=== PATIENT | female | born 1990 | race Caucasian/White ===

== ENCOUNTER 2017-12-14 17:07 | Emergency (ER) | payer OTHER ==
[2017-12-14] MEDS ORDERED: HYDROmorphone INJ* 1 MG/ML CARPUJECT SYRINGE IV ONE ×2 (17:50→19:01)
[2017-12-14] MEDS ORDERED: Ondansetron INJ* 2 MG/ML VIAL IV ONE (17:50)
[2017-12-14] MEDS ORDERED: NS 0.9% 1000 ML* 1,000 ML IV ONE (17:50)
[2017-12-14] MEDS ORDERED: HYDROmorphone INJ1* 1 MG/ML SYRINGE ONE (18:01)
[2017-12-14] MEDS: HYDROmorphone INJ1* 1 MG/ML SYRINGE IV ONE ×2 (18:04→19:07)
--- NOTE | 2017-12-14 20:24 | RAD ---
EXAM: CT Pelvis Without Intravenous Contrast, Skeletal EXAM DATE/TIME: 12/14/2017 7:18 PM CLINICAL HISTORY: 27 years old, female; Pain; Hip pain; Right hip; Prior surgery; Surgery date: 6+ months; Surgery type: Hip pinning after FX; Additional info: Fall, HX of right hip dislocation TECHNIQUE: Axial computed tomography images of the pelvis without intravenous contrast. Exam focused on the skeletal structures. All CT scans at this facility use at least one of these dose optimization techniques: automated exposure control; mA and/or kV adjustment per patient size (includes targeted exams where dose is matched to clinical indication); or iterative reconstruction. Coronal and sagittal reformatted images were created and reviewed. COMPARISON: No relevant prior studies available. FINDINGS: Stomach and bowel: No dilated bowel identified. Bones/joints: There is chronic deformity and postsurgical change in the proximal right femur with 2 surgical screws extending through the greater trochanter. The right femoral head is dislocated posteriorly. Well-corticated ossific fragments are noted medial to the femoral head suggesting loose intra-articular bodies. Tiny ossific fragments are also noted posterior to the humeral head on axial images 66 and 68, and acute fracture is difficult to exclude. There is chronic deformity and likely postsurgical change in the right iliac wing with linear lucencies likely site of prior surgical screws. The patient is status post ORIF of proximal left femur. The left femoral head is well-positioned in the acetabulum. Soft tissues: A 2 mm calcification is noted in what is likely the lower pole of the right kidney. Kidneys are incompletely visualized. 3 cm cystic structure in the right adnexa, likely arising from the right ovary. IMPRESSION: 1. Posterior dislocation of right femoral head. 2. Chronic deformity and postsurgical change in proximal right femur and right ilium. Punctate ossific fragments noted posterior to the dislocated femoral head may represent sequela of old trauma or tiny acute fracture fragments. 3. Status post ORIF of proximal left femur. The left femoral head is well-positioned in the acetabulum. 4. Probable punctate right renal calculus. Kidneys are incompletely visualized. To contact [facility] with a general question: Operations Center - [phone] For direct physician to physician contact: Physician Hotline - [phone] [facility] ([facility] Facility ID #[id number])
--- NOTE | 2017-12-14 20:38 | ED ---
Lower Extremity - HPI Summary HPI Summary: Patient complains of right hip pain after falling while walking. Patient states she believes her hip has been dislocated, states she heard a pop when she fell. 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 Patient is pending right hip replacement in February. Orthopedic surgeon is Dr. Cristina at [facility] in [place]. Patient denies any other pain, symptoms, injuries. Patient has not ambulated since fall. Medical history as HTN, DM, hip dysplasia. 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 Patient states she normally walks on the ball of her rt foot. - History of Current Complaint Chief Complaint: EDHipPelvisInjury Stated Complaint: RT HIP PAIN Time Seen by Provider: 12/14/17 17:45 Hx Obtained From: Patient Mechanism Of Injury: Fall From A Standing Position Onset of Pain: Immediate Onset/Duration: Hours Severity Initially: Severe Severity Currently: Severe Pain Intensity: 10 Pain Scale Used: 0-10 Numeric Timing: Constant Location: Is Discrete @ Character Of Pain: Sharp, Throbbing Associated Signs And Symptoms: Positive: Negative Aggravating Factor(s): Standing, Ambulation, Movement, Weight Bearing Alleviating Factor(s): Nothing Able to Bear Weight: No - Allergies/Home Medications Allergies/Adverse Reactions: Allergies Allergy/AdvReac Type Severity Reaction Status Date / Time bee venom protein (honey bee) Allergy Anaphylatic Verified 12/14/17 17:31 Shock latex Allergy Rash Verified 12/14/17 17:31 morphine Allergy Anaphylatic Verified 12/14/17 17:31 Shock Penicillins Allergy Hives Verified 12/14/17 17:18 sulfamethoxazole Allergy Rash Verified 12/14/17 17:31 [From Bactrim] trimethoprim [From Bactrim] Allergy Rash Verified 12/14/17 17:31 vancomycin Allergy Hives Verified 12/14/17 17:18 Home Medications: Home Medications NK [No Home Medications Reported] 12/14/17 [History Confirmed 12/14/17] PMH/Surg Hx/FS Hx/Imm Hx Endocrine/Hematology History: Denies: Hx Anticoagulant Therapy Cardiovascular History: Denies: Hx Cardiac Arrest History: Denies: Hx Dialysis Neurological History: Denies: Hx CVA - Surgical History Surgery Procedure, Year, and Place: right hip pinning Infectious Disease History: No Infectious Disease History: Denies: Traveled Outside the [place] in Last 30 Days - Social History Alcohol Use: None Substance Use Type: Reports: Marijuana Smoking Status (MU): Light Every Day Tobacco Smoker Review of Systems Constitutional: Negative Eyes: Negative ENT: Negative Cardiovascular: Negative Respiratory: Negative Gastrointestinal: Negative Genitourinary: Negative Musculoskeletal: Other Skin: Negative Neurological: Negative Psychological: Normal All Other Systems Reviewed And Are Negative: Yes Physical Exam - Summary Physical Exam Summary: Obvious deformity to right hip. PMS intact distally on right extremity. Patient in position with legs bent, unable to determine if legs unequal length. No apparent internal or external rotation. Triage Information Reviewed: Yes Vital Signs On Initial Exam: Initial Vitals Temp Pulse Resp BP Pulse Ox 97.9 F 83 16 122/74 99 12/14/17 17:15 12/14/17 17:15 12/14/17 17:15 12/14/17 17:15 12/14/17 17:15 Vital Signs Reviewed: Yes Appearance: Positive: Well-Appearing Skin: Positive: Warm Diagnostics - Vital Signs Vital Signs Temp Pulse Resp BP Pulse Ox 12/14/17 19:58 123/84 12/14/17 19:07 62 18 98 12/14/17 18:04 22 12/14/17 17:25 110/70 12/14/17 17:15 97.9 F 83 16 122/74 99 - Laboratory Lab Statement: Any lab studies that have been ordered have been reviewed, and results considered in the medical decision making process. - Radiology hip Radiology Interpretation Completed By: ED Physician - + Posterior Dislocation right hip. - CT hip CT Interpretation Completed By: Radiologist - Positive posterior dislocation right hip. Lower Extremity Course/Dx - Course Course Of Treatment: Patient complains of right hip pain after falling while walking. Patient states she believes her hip has been dislocated, states she heard a pop when she fell. 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 Patient is pending right hip replacement in February. Orthopedic surgeon is Dr. Cristina at [facility] in [place]. Patient denies any other pain, symptoms, injuries. Patient has not ambulated since fall. Medical history as HTN, DM, hip dysplasia. 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 Patient states she normally walks on the ball of her rt foot. Physical exam:Obvious deformity to right hip. PMS intact distally on right extremity. Patient in position with legs bent, unable to determine if legs unequal length. No apparent internal or external rotation. Vital signs within normal limits. X-ray non-definitive. CT right hip positive for posterior hip dislocation, possible acute avulsion fragments. Right hip reduction performed by this provider with conscious sedation performed by Dr. Salas. Reduction procedure confirmed by x-ray. PMS intact postreduction. However patient states hip is unstable and she can feel it moving around. Cannot ambulate as a result. Discussed patient with orthopedics international logistics analyst for [facility] recommended transfer to original surgeon. Dr. Candelario patient's orthopedic surgeon at [facility] agrees to accept ED to ED. - Diagnoses Provider Diagnoses: Hip dislocation, right, Instability of right hip joint Discharge - Sign-Out/Discharge Documenting (check all that apply): Patient Departure - Discharge Plan Condition: Stable Disposition: TRANS HIGHER LVL OF CARE FAC Referrals: No Primary Care Phys,NOPCP [Primary Care Provider] - - Billing Disposition and Condition Condition: STABLE Disposition: Trans Higher Lvl of Care Fac
--- NOTE | 2017-12-14 21:33 | ED ---
Progress - Progress Note Progress Note: Requested to see pt by Heath MOHAMUD. A 27 y/o F with extensive hip PMHx presents to ED after popping her R hip out earlier today. Pt was turning to go into the bathroom, her leg became very weak and gave out on her. Pt fell hard to the floor and she heard her hip pop out. Pt was unable to get up from the floor. She states having had one previous episode of minor hip dislocation, to which she leaned into it and it resolved. Pt smokes marijuana. Non-smoker. No ETOH. Pt has had 22 operations. Pt is scheduled for hip surgery in February 2018. Pt is seen by [facility] orthopedics for all her ortho issues. Discussed at length with pt the risk and benefits of deep sedation. Pt became teary at bedside, requesting that her [place] ortho be consulted. She states have complications from a hip "rebuild" in August 2015. She is concerned that while attempting to pop her hip back in, something might worsen it. Discussed with pt that [facility] [place] is recommending procedure WILLIAM and not to wait. Pt denies sleep apnea, any issues coming out of anaesthesia. Pt last ate this morning. Course/Dx - Course Course Of Treatment: Requested to see pt by Heath MOHAMUD. A 27 y/o F with extensive hip PMHx presents to ED after popping her R hip out earlier today. Pt has had 22 operations without complications from anaesthesia. Pt is scheduled for hip surgery in February 2018. Pt is seen by [facility] orthopedics for all her ortho issues. Discussed at length with pt the risk and benefits of deep sedation. Pt became teary at bedside, requesting that her [place] ortho be consulted. She states have complications from a hip "rebuild" in August 2015. She is concerned that while attempting to pop her hip back in, something might worsen it. Discussed with pt that [facility] [place]opedic surgeon is recommending procedure WILLIAM and not to wait. Discharge - Discharge Plan Referrals: No Primary Care Phys,NOPCP [Primary Care Provider] - - Attestation Statements Document Initiated by Scribe: Yes Documenting Scribe: Fran Harding Provider For Whom Scribe is Documenting (Include Credential): Dr. Everardo Gaytan MD Scribe Attestation: I, Fran Harding, scribed for Dr. Everardo Gaytan MD on 12/14/17 at 2142.
[2017-12-14] MEDS ORDERED: fentaNYL* 50 MCG/ML 2 ML VIAL (100 MCG VIAL) IV SLOW PU ONE (22:37)
[2017-12-14] MEDS ORDERED: Propofol* 10 MG/ML 20 ML BTL IV PUSH ONE (22:37)
[2017-12-14] MEDS ORDERED: Propofol* 500 MG/50 ML BTL ONE (22:47)
[2017-12-15] MEDS ORDERED: HYDROmorphone INJ* 1 MG/ML CARPUJECT SYRINGE IV ONE (02:04)
[2017-12-15] MEDS ORDERED: HYDROmorphone INJ1* 1 MG/ML SYRINGE ONE (02:08)
[2017-12-15] MEDS ORDERED: HYDROmorphone INJ1* 1 MG/ML SYRINGE IV SLOW PU ONE (02:10)
[2017-12-15 02:18] VITALS: BP 116/72
--- NOTE | 2017-12-15 07:02 | RAD ---
INDICATION: Right hip injury. COMPARISON: There are no relevant prior studies available for comparison. TECHNIQUE: An AP view of the pelvis and frontal and lateral views of the right hip were obtained. FINDINGS: There appears to be superior and posterior dislocation of the right femoral head relative to the acetabulum. There are postsurgical changes in the proximal right femur. 3 surgical screws are noted in the intertrochanteric region. There appears to be dysplasia of the femoral head and acetabulum. No gross fracture is appreciated. IMPRESSION: SUPERIOR, POSTERIOR DISLOCATION OF THE RIGHT FEMORAL HEAD. R1F
--- NOTE | 2017-12-15 07:46 | RAD ---
Indication: Status post dislocation of the right femur. Single view of the right hip demonstrates reduction of previously seen posterior dislocation of the right hip. There is chronic deformity of the right hip with internal fixation from prior injury. IMPRESSION: Reduction of previously seen posterior superior dislocation of the right hip. R1F
== END 2017-12-15 02:23 | disposition short-term general hospital (02) ==
LOC: ED 17:07
DX: S73.014A Posterior dislocation of right hip, initial encounter (principal); W18.30XA Fall on same level, unspecified, initial encounter; Y93.01 Activity, walking, marching and hiking; Y92.9 Unspecified place or not applicable; M25.351 Other instability, right hip; Z88.5 Allergy status to narcotic agent; Z88.2 Allergy status to sulfonamides; Z88.1 Allergy status to other antibiotic agents; Z91.030 Bee allergy status; Z91.040 Latex allergy status; F17.200 Nicotine dependence, unspecified, uncomplicated
CPT/HCPCS: 27250; 72192; 96361; 96375; 96376; 99156; 99157; 99285; J1170; J2405; J2704; J3010